=== PATIENT | female | born 1995 | race Caucasian/White ===

== ENCOUNTER 2017-09-23 07:16 | Emergency (ER) | payer SELFPAY ==
[2017-09-23 07:23] VITALS: BP 143/71; BMI 26.9
--- NOTE | 2017-09-23 07:46 | DR.GENAD ---
HPI - PCP Primary Care Physician: NFD - Complaint/Symptoms Chief Complaint Doctors Comments: Patient states she has an ingrown pubic hair for the past 1 1/2 weeks getting worst with pain when she walks and sets. States she has had them before but they usually goes away when she use warm compress but this one got worst. states the pain is 7 of 10. States she does not have a local doctor. states her periods area regular and her last period was and she is not . She denies vaginal discharge, dysuria, hematuria, diarrhea or any recent trauma. Chief Complaint:: INGROWN HAIR ON PUBIC AREA Self Treatment fo Chief Complaint: HOT COMPRESS - Nurses notes reviewed Nurses Notes Review: Yes - Source History Provided: Patient - Mode of Arrival Mode of Arrival: Ambulatory - Timing Onset of Chief Complaint: 09/14/17 Came on: Gradually - Duration Duration: Constant How lon Duration: Days - Location Location: pelvic - Severity Severity: Moderate - Modifying Factors Worsens:: walking and movemen Improves:: nothing PMH - PMH Past Medical History: No Past Surgical History: No Surgical History: No History - Family History History of Family Medical Conditions: No Family Medical History: Cancer - Social History Does patient currently use any type of tobacco product: Yes Have you used tobacco products in the last 12 months: Yes Type of Tobacco Use: Cigarettes How many years tobacco product used: 4 Does any household member use tobacco: Yes Alcohol Use: Rarely Do you use any recreational Drugs:: No Lives With: Other Lives Where: Home - infectious screening In the last 2 months have you had wt loss of >10#?: NO Have you had fever, night sweats or hemotysis?: No Have you traveled outside the country in the last 6 months?: No Isolation: Standard ROS - Review of Systems Constitutional: No Symptoms Reported. negative: See HPI, Chills, Diaphoresis, Fever, Malaise, Weakness, Irritable, Fatigue, Loss of Appetite, Other Eyes: No Symptoms Reported ENTM: No Symptoms Reported, Nose Congestion Respiratoy: No Symptoms Reported. negative: See HPI, Productive Cough, Non- Productive Cough, Moist Cough, Dry Cough, Hacking Cough, Barking Cough, Brassy Cough, Orthopnea, Short of Breath, Stridor, Wheezing, Hemoptysis, Other Cardiovascular: No Symptoms Reported Gastrointestinal/Abdominal: No Symptoms Reported Genitourinary: No Symptoms Reported. negative: See HPI, Discharge, Dysuria, Frequency, Hematuria, Pain, Bleeding, Other Neurological: No Symptoms Reported, Problems Walking (pain when she walks ) Musculoskeletal: No Symptoms Reported Integumentary: No Symptoms Reported Hematologic/Lymphatic: No Symptoms Reported Endocrine: No Symptoms Reported Psychiatric: No Symptoms Reported. negative: See HPI, Anxiety, Depression, Hallucinations, Excessive crying, Suicidal, Other PE - Vital Signs Vitals: Temperature 98.4 F Pulse Rate 73 Respiratory Rate 20 Blood Pressure 143/71 O2 Sat by Pulse Oximetry 100 - General Limitations: No Limitations General Appearance: Alert, In Distress (moderate) - Head Head Exam: Normal Inspection, Atraumatic, Normocephalic - Eyes Eye exam: Normal Appearance, PERRL, EOMI. negative: Scleral Icterus, Conjunctival Injection, Nystagmus, Miosis, Mydrasis, Periorbital Swelling, Periorbital Tenderness, Other - ENT ENT Exam: Normal Exam, Normal Oropharynx, Normal External Ear Exam, Mucous Membranes Moist, TM's Normal Bilaterally External Ear Exam: Normal External Inspection TM/Canal Exam: Bilateral Normal Nose Exam: Normal Nose Exam Mouth Exam: Normal Inspection. negative: Drooling, Trismus, Lip Swelling, Tongue Elevation, Tongue Swelling, Laceration, Other Throat Exam: Normal Inspection - Neck Neck Exam: Normal Inspection, Full ROM, Trachea Midline. negative: Tenderness, Meningismus, Lymphadenopathy, Thyromegaly, Other - Chest Chest Inspection: Normal Inspection, Symmetric Chest Wall Rise - Respiratory Respiratory Exam: Normal Lung Sounds Bilat Respiratory Exam: Bilateral Clear to Auscultation - Cardiovascular Cardiovascular Exam: Regular Rate, Normal Rhythm, Normal Heart Sounds. negative : Bradycardia, Tachycardia, Irregular Rhythm, Systolic Murmur, Diastolic Murmur , Rubs, Gallop, Clicks, JVD, +S1, +S2, +S3, +S4, Other - Abdominal Exam Abdominal Exam: Normal Inspection, Normal Bowel Sounds, Soft Abdominal Tenderness: negative: RUQ, RLQ, LUQ, LLQ, Epigastrium, Suprapubic, Diffuse, Mild, Moderate, Severe, Other - Extremities Extremities Exam: Normal Inspection, Full ROM, Normal Capillary Refill. negative: Tenderness, Edema, Joint Swelling, Calf Tenderness, Other - Back Back Exam: Normal Inspection, Full ROM. negative: Tenderness, (R) CVA Tenderness, (L) CVA Tenderness, Muscle Spasm, Paraspinal Tenderness, Vertebral Tenderness, Rashes, (R) Sciatic Notch Tenderness, (L) Sciatic Notch Tendern, (R ) Straight Leg Raise, (L) Straight Leg Raise, Other - Neurologic Neurological Exam: Alert, Oriented X3, CN II-XII Intact, Normal Gait, Reflexes Normal - Psychiatric Psychiatric Exam: Normal Affect, Normal Mood - Skin Skin Exam: Warm, Dry, Intact, Normal Color - Diagnosis Discharge Problem: Cellulitis of labia majora, Folliculitis - Discharge Plan Disposition: HOME, SELF-CARE Condition: Stable Prescriptions: Acetaminophen/Codeine Tab [TYLENOL w/CODEINE #3 (300 MG/30 MG) *] 1 tab PO Q4- 6H PRN #24 tab PRN Reason: Pain Cephalexin [KEFLEX CAP 500 MG *] 500 mg PO TID #30 cap - Follow ups/Referrals Follow ups/Referrals: NFD,None [Primary Care Provider] - 3 days CARLOZ UGARTE [STAFF PHYSICIAN] - 3 days ALFREDITO HUGGINS [STAFF PHYSICIAN] - 3 days - Instructions Instructions: Cellulitis, Adult, [id number]
[2017-09-23] MEDS ORDERED: TORADOL 60 MG VIAL IM ONE (07:58)
[2017-09-23] MEDS ORDERED: LEVAQUIN TAB 500 MG PO STA (07:58)
[2017-09-23] MEDS ORDERED: ROCEPHIN VIAL 1 GM IM ONE (07:58)
[2017-09-23] MEDS ORDERED: ROCEPHIN VIAL 1 GM ONE (08:01)
[2017-09-23] MEDS ORDERED: TORADOL 60 MG VIAL ONE (08:01)
[2017-09-23] MEDS ORDERED: LEVAQUIN TAB 500 MG ONE (08:01)
== END 2017-09-23 08:32 | disposition home or self-care (01) ==
LOC: ER 07:29
DX: N76.2 Acute vulvitis (principal); L73.8 Other specified follicular disorders
CPT/HCPCS: 96372; 99282; J0696; J1885

== ENCOUNTER 2017-11-04 21:39 | Emergency (ER) | payer SELFPAY ==
[2017-11-04 21:48] VITALS: BP 112/63; BMI 26.5
--- NOTE | 2017-11-04 22:14 | DR.GENAD ---
HPI - PCP Primary Care Physician: NFD - Complaint/Symptoms Chief Complaint Doctors Comments: Epigatric abdominal pain since 1800 hrs today. There is no radiation. There is no excerbating or relieving factors. She has associated nausea and has vomitted x 3 so far since symptom onset. Overall , she's had this epigastric pain intermittently x about 2 months. She denies hx. of abdominal trauma and drinks ETOH occassionaly she states. Chief Complaint:: Pt states that she is having to make herself throw up. Says her stomach feels like it's burning and irritated. Self Treatment fo Chief Complaint: Patient states that she took a nausea pill. Thinks it may have been Zofran. Last took something for nausea about a month ago. - Nurses notes reviewed Nurses Notes Review: Yes - Source History Provided: Patient - Mode of Arrival Mode of Arrival: Ambulatory - Timing Onset of Chief Complaint: 10/21/17 PMH - PMH Past Medical History: No Past Surgical History: No Surgical History: No History - Family History History of Family Medical Conditions: Yes Family Medical History: Cancer - Social History Type of Tobacco Use: Cigarettes Alcohol Use: Occasionally Do you use any recreational Drugs:: No Lives With: Significant Other Lives Where: Home - infectious screening Have you traveled outside the country in the last 6 months?: No Isolation: Standard ROS - Review of Systems Constitutional: No Symptoms Reported Eyes: No Symptoms Reported ENTM: No Symptoms Reported Respiratoy: No Symptoms Reported Cardiovascular: No Symptoms Reported Gastrointestinal/Abdominal: Abdominal Pain (epigastric area), Nausea, Vomiting Genitourinary: No Symptoms Reported Neurological: No Symptoms Reported Musculoskeletal: No Symptoms Reported Integumentary: No Symptoms Reported Hematologic/Lymphatic: No Symptoms Reported Endocrine: No Symptoms Reported Psychiatric: No Symptoms Reported All Other Systems: Reviewed and Negative PE - Vital Signs Vitals: Temperature 98.5 F Pulse Rate 60 Respiratory Rate 20 Blood Pressure 112/63 O2 Sat by Pulse Oximetry 100 - General Limitations: No Limitations General Appearance: Alert, In No Apparent Distress - Head Head Exam: Normal Inspection - Eyes Eye exam: Normal Appearance - ENT ENT Exam: Normal Exam - Neck Neck Exam: Normal Inspection - Chest Chest Inspection: Normal Inspection - Respiratory Respiratory Exam: Normal Lung Sounds Bilat - Cardiovascular Cardiovascular Exam: Regular Rate, Normal Rhythm - Abdominal Exam Abdominal Exam: Normal Inspection, Normal Bowel Sounds, Soft Abdominal Tenderness: Epigastrium - Extremities Extremities Exam: Normal Inspection - Back Back Exam: Normal Inspection - Neurologic Neurological Exam: Alert, Oriented X3 - Psychiatric Psychiatric Exam: Normal Affect, Normal Mood - Skin Skin Exam: Warm, Dry, Intact, Normal Color ROR - Labs Reviewed Result Diagrams: 11/04/17 23:40 11/04/17 23:40 Laboratory: WBC 7.5 X10^3/uL (3.6-10.0) 11/04/17 23:40 RBC 4.05 X10^6/uL (3.5-5.4) 11/04/17 23:40 Hgb 13.0 g/dL (12.0-16.0) 11/04/17 23:40 Hct 37.2 % (36.0-47.0) 11/04/17 23:40 MCV 91.9 fL (80.0-100.0) 11/04/17 23:40 MCH 32.0 pg (27.0-34.0) 11/04/17 23:40 MCHC 34.9 g/dL (33.0-35.0) 11/04/17 23:40 RDW 12.8 % (11.6-16.5) 11/04/17 23:40 Plt Count 195 X10^3/uL (150.0-450.0) 11/04/17 23:40 MPV 7.7 fL (7.4-11.0) 11/04/17 23:40 Neut % (Auto) 74.5 % (42.0-75.0) 11/04/17 23:40 Lymph % (Auto) 20.5 % (21.0-51.0) L 11/04/17 23:40 [place] % (Auto) 4.4 % (0.0-13.0) 11/04/17 23:40 Eos % (Auto) 0.2 % (0.9-2.9) L 11/04/17 23:40 Baso % (Auto) 0.4 % (0.2-1.0) 11/04/17 23:40 Neut # (Auto) 5.6 x10^3/uL (2.2-4.8) H 11/04/17 23:40 Lymph # (Auto) 1.5 X10^3/uL (1.3-2.9) 11/04/17 23:40 [place] # (Auto) 0.3 x10^3/uL (0.3-0.8) 11/04/17 23:40 Eos # (Auto) 0.0 x10^3/uL (0.0-0.2) 11/04/17 23:40 Baso # (Auto) 0.0 X10^3/uL (0.0-0.1) 11/04/17 23:40 Absolute Nucleated RBC 0.0 /100WBC 11/04/17 23:40 Sodium 141 mmol/L (136-145) 11/04/17 23:40 Corrected Sodium TNP 11/04/17 23:40 Potassium 3.7 mmol/L (3.5-5.1) 11/04/17 23:40 Chloride 104 mmol/L (98-107) 11/04/17 23:40 Carbon Dioxide 26.1 mmol/L (21-32) 11/04/17 23:40 BUN 11 mg/dL (7-18) 11/04/17 23:40 Creatinine 0.78 mg/dL (0.55-1.02) 11/04/17 23:40 Est GFR (MDRD) Af Amer > 60 (>60) 11/04/17 23:40 Est GFR (MDRD) Non-Af > 60 (>60) 11/04/17 23:40 Glucose 98 mg/dL (65-99) 11/04/17 23:40 Calcium 8.5 mg/dL (8.5-10.1) 11/04/17 23:40 Corrected Calcium TNP 11/04/17 23:40 Total Bilirubin 0.60 mg/dL (0.2-1.0) 11/04/17 23:40 AST 10 Units/L (15-37) L 11/04/17 23:40 ALT 15 Units/L (12-78) 11/04/17 23:40 Alkaline Phosphatase 44 Units/L (46-116) L 11/04/17 23:40 Total Protein 7.2 g/dL (6.4-8.2) 11/04/17 23:40 Albumin 3.9 g/dL (3.4-5.0) 11/04/17 23:40 Globulin 3.3 g/dL (2.5-4.5) 11/04/17 23:40 Albumin/Globulin Ratio 1.2 Ratio (1.1-2.1) 11/04/17 23:40 Amylase 128 Units/L (25-115) H 11/04/17 23:40 Lipase 99 Units/L (73-393) 11/04/17 23:40 - XRAY XRAY Interpreted by: Self (AAS: Normal CXR, non-obstructing abdominal gas) - Diagnosis Discharge Problem: Epigastric abdominal pain, Nausea & vomiting - Discharge Plan Disposition: HOME, SELF-CARE Condition: Stable - Follow ups/Referrals Follow ups/Referrals: NFD,None [Primary Care Provider] - 3 days - Instructions Instructions: Abdominal Pain, Adult, [id number], Nausea, Adult, [id number]
[2017-11-04] MEDS ORDERED: PHENERGAN INJ 25 MG IV ONE (22:49)
[2017-11-04] MEDS ORDERED: TORADOL 30 MG VIAL IVP ONE (22:52)
[2017-11-04] MEDS ORDERED: TORADOL 30 MG VIAL ONE (23:04)
[2017-11-04] MEDS ORDERED: PHENERGAN INJ 25 MG ONE (23:04)
[2017-11-04 23:48] LABS: BASOPHILS % (AUTO) 0.4 % (0.2-1.0); EOSINOPHILS % (AUTO) 0.2 % (0.9-2.9); HEMATOCRIT 37.2 % (36.0-47.0); LYMPHOCYTES # (AUTO) 1.5 X10^3/uL (1.3-2.9); LYMPHOCYTES % (AUTO) 20.5 % (21.0-51.0); MEAN CORPUSCULAR HGB CONC 34.9 g/dL (33.0-35.0); MEAN CORPUSCULAR VOLUME 91.9 fL (80.0-100.0); MEAN PLATELET VOLUME 7.7 fL (7.4-11.0); MONOCYTES # (AUTO) 0.3 x10^3/uL (0.3-0.8); MONOCYTES % (AUTO) 4.4 % (0.0-13.0); NEUTROPHILS # (AUTO) 5.6 x10^3/uL (2.2-4.8); NEUTROPHILS % (AUTO) 74.5 % (42.0-75.0); PLATELET COUNT 195 X10^3/uL (150.0-450.0); RED BLOOD COUNT 4.05 X10^6/uL (3.5-5.4); RED CELL DISTRIBUTION WIDTH 12.8 % (11.6-16.5); WHITE BLOOD COUNT 7.5 X10^3/uL (3.6-10.0)
[2017-11-04 23:59] LABS: ALANINE AMINOTRANSFERASE 15 Units/L (12-78); ALBUMIN 3.9 g/dL (3.4-5.0); ALKALINE PHOSPHATASE 44 Units/L (46-116); AMYLASE 128 Units/L (25-115); ASPARTATE AMINO TRANSFERASE 10 Units/L (15-37); BLOOD UREA NITROGEN 11 mg/dL (7-18); CALCIUM 8.5 mg/dL (8.5-10.1); CARBON DIOXIDE 26.1 mmol/L (21-32); CHLORIDE 104 mmol/L (98-107); CREATININE 0.78 mg/dL (0.55-1.02); LIPASE 99 Units/L (73-393); SODIUM 141 mmol/L (136-145); TOTAL PROTEIN 7.2 g/dL (6.4-8.2); eGFR BLACK RACES > 60 (>60); eGFR NON BLACK RACES > 60 (>60)
--- NOTE | 2017-11-05 01:51 | RAD ---
Acute abdominal series Indication:Abdominal pain Comparison: None available Findings: The trachea is midline. The cardiac silhouette is unremarkable. The lungs are clear without focal i nfiltrate or effusion. The bony thorax is unremarkable. Flat and upright evaluation of the abdomen demonstrates a normal bowel gas pattern. No pathological soft tissue mass or calcification can be observed. The bony structures are grossly intact. IMPRESSION: 1. No acute cardiopulmonary disease. 2. No evidence for acute abdominal pathology identified. Reported By:
== END 2017-11-05 01:53 | disposition home or self-care (01) ==
LOC: ER 21:39
DX: R10.13 Epigastric pain (principal); R11.2 Nausea with vomiting, unspecified
CPT/HCPCS: 36415; 74022; 80053; 82150; 83690; 85025; 96365; 96374; 96375; 99282; 99283; A4222; J1885; J2550

== ENCOUNTER 2017-12-06 18:54 | Emergency (ER) | payer SELFPAY ==
[2017-12-06 19:00] VITALS: BP 130/69; BMI 24.5
--- NOTE | 2017-12-06 19:38 | DR.GENAD ---
HPI - PCP Primary Care Physician: NFD - Complaint/Symptoms Chief Complaint Doctors Comments: Patient presents with complaint of vomiting and diarrhea for two days. She denies fever. Sha also admits to congestion. Chief Complaint:: VOMITING - Source History Provided: Patient - Mode of Arrival Mode of Arrival: Ambulatory - Timing Onset of Chief Complaint: 12/05/17 PMH - PMH Past Medical History: Yes Past Medical History: Anxiety, Depression Past Surgical History: No Surgical History: No History - Family History History of Family Medical Conditions: No Family Medical History: Cancer - Social History Does patient currently use any type of tobacco product: Yes Have you used tobacco products in the last 12 months: Yes Type of Tobacco Use: Cigarettes Does any household member use tobacco: Yes Alcohol Use: None Do you use any recreational Drugs:: No Lives With: Significant Other Lives Where: Home - infectious screening In the last 2 months have you had wt loss of >10#?: NO Have you had fever, night sweats or hemotysis?: No Have you traveled outside the country in the last 6 months?: No Isolation: Standard ROS - Review of Systems Constitutional: No Symptoms Reported Eyes: No Symptoms Reported ENTM: Nose Congestion (mucoid rhinorrhea) Respiratoy: No Symptoms Reported Cardiovascular: No Symptoms Reported Gastrointestinal/Abdominal: No Symptoms Reported Genitourinary: No Symptoms Reported Neurological: No Symptoms Reported Musculoskeletal: No Symptoms Reported Integumentary: No Symptoms Reported Hematologic/Lymphatic: No Symptoms Reported Endocrine: No Symptoms Reported Psychiatric: No Symptoms Reported All Other Systems: Reviewed and Negative PE - Vital Signs Vitals: Temperature 98.6 F Pulse Rate 20 Respiratory Rate 20 Blood Pressure 130/69 O2 Sat by Pulse Oximetry 98 - General Limitations: No Limitations General Appearance: Alert - Head Head Exam: Normal Inspection, Atraumatic - Eyes Eye exam: Normal Appearance, PERRL, EOMI - ENT ENT Exam: Normal Exam, Other (rhinorrhea-mucoid) External Ear Exam: Normal External Inspection TM/Canal Exam: Bilateral Normal Nose Exam: Other (mucoid rhinorrhea) Mouth Exam: Normal Inspection Throat Exam: Normal Inspection - Neck Neck Exam: Normal Inspection, Full ROM - Chest Chest Inspection: Normal Inspection, Symmetric Chest Wall Rise - Respiratory Respiratory Exam: Normal Lung Sounds Bilat Respiratory Exam: Bilateral Clear to Auscultation - Cardiovascular Cardiovascular Exam: Regular Rate - Abdominal Exam Abdominal Exam: Normal Inspection Abdominal Tenderness: negative: RUQ, RLQ, LUQ, LLQ, Epigastrium, Suprapubic, Diffuse, Mild, Moderate, Severe, Other - Extremities Extremities Exam: Normal Inspection, Full ROM - Back Back Exam: Normal Inspection, Full ROM - Neurologic Neurological Exam: Alert, Oriented X3, CN II-XII Intact - Psychiatric Psychiatric Exam: Normal Affect, Normal Mood - Skin Skin Exam: Warm, Dry, Intact Course - Education/Counseling Educated On: Treatment, Prognosis ROR - Labs Reviewed Result Diagrams: 12/06/17 19:49 12/06/17 19:49 Laboratory: WBC 9.5 X10^3/uL (3.6-10.0) 12/06/17 19:49 RBC 4.24 X10^6/uL (3.5-5.4) 12/06/17 19:49 Hgb 13.7 g/dL (12.0-16.0) 12/06/17 19:49 Hct 38.5 % (36.0-47.0) 12/06/17 19:49 MCV 90.9 fL (80.0-100.0) 12/06/17 19:49 MCH 32.3 pg (27.0-34.0) 12/06/17 19:49 MCHC 35.6 g/dL (33.0-35.0) H 12/06/17 19:49 RDW 13.0 % (11.6-16.5) 12/06/17 19:49 Plt Count 220 X10^3/uL (150.0-450.0) 12/06/17 19:49 MPV 8.2 fL (7.4-11.0) 12/06/17 19:49 Neut % (Auto) 75.1 % (42.0-75.0) H 12/06/17 19:49 Lymph % (Auto) 19.2 % (21.0-51.0) L 12/06/17 19:49 [place] % (Auto) 5.2 % (0.0-13.0) 12/06/17 19:49 Eos % (Auto) 0.1 % (0.9-2.9) L 12/06/17 19:49 Baso % (Auto) 0.4 % (0.2-1.0) 12/06/17 19:49 Neut # (Auto) 7.1 x10^3/uL (2.2-4.8) H 12/06/17 19:49 Lymph # (Auto) 1.8 X10^3/uL (1.3-2.9) 12/06/17 19:49 [place] # (Auto) 0.5 x10^3/uL (0.3-0.8) 12/06/17 19:49 Eos # (Auto) 0.0 x10^3/uL (0.0-0.2) 12/06/17 19:49 Baso # (Auto) 0.0 X10^3/uL (0.0-0.1) 12/06/17 19:49 Absolute Nucleated RBC 0.0 /100WBC 12/06/17 19:49 Sodium 138 mmol/L (136-145) 12/06/17 19:49 Corrected Sodium TNP 12/06/17 19:49 Potassium 3.8 mmol/L (3.5-5.1) 12/06/17 19:49 Chloride 102 mmol/L (98-107) 12/06/17 19:49 Carbon Dioxide 23.3 mmol/L (21-32) 12/06/17 19:49 BUN 10 mg/dL (7-18) 12/06/17 19:49 Creatinine 0.84 mg/dL (0.55-1.02) 12/06/17 19:49 Est GFR (MDRD) Af Amer > 60 (>60) 12/06/17 19:49 Est GFR (MDRD) Non-Af > 60 (>60) 12/06/17 19:49 Glucose 103 mg/dL (65-99) H 12/06/17 19:49 Calcium 9.4 mg/dL (8.5-10.1) 12/06/17 19:49 Specimen Type Clean catch urine 12/06/17 20:44 Urine Color Yellow (YELLOW) 12/06/17 20:44 Urine Appearance Clear (CLEAR) 12/06/17 20:44 Urine pH 6.5 (5.0 - 8.0) 12/06/17 20:44 Ur Specific [place] 1.010 (1.000-1.030) 12/06/17 20:44 Urine Protein 1+ (NEGATIVE) 12/06/17 20:44 Urine Glucose (UA) Negative (NEGATIVE) 12/06/17 20:44 Urine Ketones 4+ (NEGATIVE) 12/06/17 20:44 Urine Occult Blood Negative (NEGATIVE) 12/06/17 20:44 Urine Nitrite Negative (NEGATIVE) 12/06/17 20:44 Urine Bilirubin Negative (NEGATIVE) 12/06/17 20:44 Urine Urobilinogen 1+ (NORMAL) 12/06/17 20:44 Ur Leukocyte Esterase 1+ (NEGATIVE) 12/06/17 20:44 Urine RBC 0-2 /HPF (NONE SEEN) 12/06/17 20:44 Urine WBC 0-2 /HPF (NONE SEEN) 12/06/17 20:44 Ur Squamous Epith Cells Rare /HPF (NEGATIVE) 12/06/17 20:44 Urine Bacteria Negative /HPF (NEGATIVE) 12/06/17 20:44 Urine Mucus Moderate /HPF (NEGATIVE) 12/06/17 20:44 Ur Culture Indicated? No/not indicated 12/06/17 20:44 - Diagnosis Discharge Problem: Mild dehydration Upper respiratory infection Qualifiers: URI type: unspecified viral URI Qualified Code(s): J06.9 - Acute upper respiratory infection, unspecified - Discharge Plan Condition: Stable - Follow ups/Referrals Follow ups/Referrals: NFD,None [Primary Care Provider] - 3 days - Instructions
[2017-12-06] MEDS ORDERED: TORADOL 30 MG VIAL ONE ×2 (19:39→19:45)
[2017-12-06] MEDS ORDERED: TORADOL 30 MG VIAL IVP ONE (19:39)
[2017-12-06] MEDS ORDERED: LR 1000 ML IV 1,000 ML IV ONE ×2 (19:39)
[2017-12-06 19:58] LABS: BASOPHILS % (AUTO) 0.4 % (0.2-1.0); EOSINOPHILS % (AUTO) 0.1 % (0.9-2.9); HEMATOCRIT 38.5 % (36.0-47.0); HEMOGLOBIN 13.7 g/dL (12.0-16.0); LYMPHOCYTES # (AUTO) 1.8 X10^3/uL (1.3-2.9); LYMPHOCYTES % (AUTO) 19.2 % (21.0-51.0); MEAN CORPUSCULAR HEMOGLOBIN 32.3 pg (27.0-34.0); MEAN CORPUSCULAR HGB CONC 35.6 g/dL (33.0-35.0); MEAN CORPUSCULAR VOLUME 90.9 fL (80.0-100.0); MEAN PLATELET VOLUME 8.2 fL (7.4-11.0); MONOCYTES # (AUTO) 0.5 x10^3/uL (0.3-0.8); MONOCYTES % (AUTO) 5.2 % (0.0-13.0); NEUTROPHILS # (AUTO) 7.1 x10^3/uL (2.2-4.8); NEUTROPHILS % (AUTO) 75.1 % (42.0-75.0); PLATELET COUNT 220 X10^3/uL (150.0-450.0); RED BLOOD COUNT 4.24 X10^6/uL (3.5-5.4); WHITE BLOOD COUNT 9.5 X10^3/uL (3.6-10.0)
[2017-12-06 20:06] LABS: BLOOD UREA NITROGEN 10 mg/dL (7-18); CALCIUM 9.4 mg/dL (8.5-10.1); CARBON DIOXIDE 23.3 mmol/L (21-32); CHLORIDE 102 mmol/L (98-107); CREATININE 0.84 mg/dL (0.55-1.02); SODIUM 138 mmol/L (136-145); eGFR BLACK RACES > 60 (>60); eGFR NON BLACK RACES > 60 (>60)
[2017-12-06] MEDS ORDERED: ZOFRAN INJ 4 MG VIAL ONE (20:30)
[2017-12-06] MEDS ORDERED: ZOFRAN INJ 4 MG VIAL IVP ONE (20:30)
[2017-12-06 20:51] LABS: BILIRUBIN,URINE NEGATIVE (NEGATIVE); BLOOD/HEMOGLOBIN,URINE NEGATIVE (NEGATIVE); GLUCOSE, URINE NEGATIVE (NEGATIVE); KETONES,URINE 4+ (NEGATIVE); LEUKOCYTE ESTERASE ,URINE 1+ (NEGATIVE); NITRITES,URINE NEGATIVE (NEGATIVE); PH,URINE 6.5 (5.0 - 8.0); PROTEIN,URINE 1+ (NEGATIVE); UROBILINOGEN,URINE 1+ (NORMAL)
[2017-12-06 20:52] LABS: APPEARANCE,URINE CLEAR (CLEAR); COLOR,URINE YELLOW (YELLOW)
[2017-12-06 20:57] LABS: RBC,URINE 0-2 /HPF (NONE SEEN); SQUAMOUS EPITHELIAL CELL,UR RARE /HPF (NEGATIVE)
[2017-12-06 20:58] LABS: BACTERIA,URINE NEGATIVE /HPF (NEGATIVE); MUCUS,URINE MODERATE /HPF (NEGATIVE)
== END 2017-12-06 21:06 | disposition home or self-care (01) ==
LOC: ER 19:06
DX: E86.0 Dehydration (principal); J06.9 Acute upper respiratory infection, unspecified
CPT/HCPCS: 36415; 80048; 81001; 85025; 96365; 96374; 96375; 99282; 99283; A4222; J1885; J2405; J7120